=== PATIENT | female | born 1975 | race Caucasian/White ===

== ENCOUNTER 2021-02-06 14:25 | Emergency (ER) | payer OTHER ==
[~2021-02-06] VITALS: Ht 157.5 cm; Wt 70.3 kg
[2021-02-06] MEDS ORDERED: HYDR1TAB94 PO (16:24)
== END 2021-02-06 16:35 | disposition home or self-care (01) ==
LOC: ER 14:25
DX: S52.502A Unspecified fracture of the lower end of left radius, initial encounter for closed fracture (principal); W01.0XXA Fall on same level from slipping, tripping and stumbling without subsequent striking against object, initial encounter
CPT/HCPCS: 25605; 73100; 99283-25; A9270